=== PATIENT | male | born 1995 | race American Indian/Alaskan Native ===

== ENCOUNTER 2021-03-13 17:08 | Emergency (ER) | payer SELFPAY ==
[2021-03-13 17:38] VITALS: BP 121/62
--- NOTE | 2021-03-13 17:54 | Emergency Department Report ---
Chief Complaint: Skin/Abscess/Foreign Body Stated Complaint: COTTON SWAB IN EAR Time Seen by Provider: 03/13/21 17:40 - HPI History of Present Illness: 25-year-old male patient presents emergency department with complaints of right ear discomfort starting today. Patient states his discomfort began after he was using Q-tips to clean his ears. Patient noticed the cotton portion of the Q-tip was missing after removing the Q-tip from his ear. Denies all other complaints at this time. - ROS Review of Systems: GENERAL: Negative for fever. ENT: Positive for right ear discomfort. CARDIOVASCULAR: Negative for chest pain. PULMONARY: Negative for shortness of breath. GASTROINTESTINAL: Negative for abdominal pain. MUSCULOSKELETAL: Negative for back pain. NEUROLOGICAL: Negative for headache. INTEGUMENTARY: Negative for rash. - Exam Vital Signs: Vital Signs 03/13/21 17:32 Temperature 98 F Pulse Rate 71 Respiratory 16 Rate Blood Pressure 121/62 [Left] O2 Sat by Pulse 98 Oximetry Physical Exam: General: Awake, appropriately interactive, no acute distress. ENT: Left auditory canal with diffuse skin irritation. Right auditory canal occluded by white foreign body, consistent with reported history of Q-tip insertion. Cannot visualize tympanic membrane. Neck: Supple. Full range of motion intact. Cardiovascular: Normal peripheral perfusion. Pulmonary: No respiratory distress. Patient is speaking normally without use of accessory muscles. Skin: No apparent rashes or lesions. Neurological: No facial asymmetry. Speech is clear. Follows commands. Patient is alert and oriented. Musculoskeletal: Moves all four extremities spontaneously with normal range of motion. Psych: Cooperative. Appropriate mood and affect. MSE screening note: Focused history and physical exam performed. Due to findings the following was ordered: ED Medical Decision Making - Medical Decision Making Patient presents to the emergency department with complaints of discomfort in his right ear after using a Q-tip. Foreign body present on physical exam, consistent with cotton from Q-tip. There is no evidence of infection or active bleeding. Jessica extractor unavailable at this facility. Risks and benefits of attempted foreign body removal discussed with patient. It was explained to the patient that irrigation is not recommended due to the material's tendency to swell and attempting blind removal with sharp instruments may result in injury to the tympanic membrane. Patient was advised that the foreign object is very likely to fall out on its own, however he has been referred to an ENT specialist for close outpatient follow-up. Emphasized the importance of refraining from inserting anything into the ear without medical supervision and refraining from submerging his head underwater until the foreign body either falls out on its own or is removed by ENT specialist. Patient expressed understanding and is agreeable to plan of care. Strict return precautions provided. ED Disposition for MSE Clinical Impression: Encounter for medical screening examination Disposition: HOME / SELF CARE / HOMELESS Is pt being admited?: No Does the pt Need Aspirin: No Condition: Stable Instructions: Medical Screening Exam Additional Instructions: Take Tylenol every 4 hours and Motrin every 8 hours as needed for pain. Do not insert anything else into the ear without medical supervision. Do not submerge the ear underwater until symptoms resolve. Follow-up with Dr. Barrow, ENT specialist, this week. Call tomorrow to schedule an appointment. See referral information below. Return to the emergency department immediately for new or worsening symptoms. Specifically, return to the emergency department immediately for bleeding, drainage, worsening pain, or any other concerns. Referrals: BONNIE BARROW MD [Staff Physician] - 3-5 Days Time of Disposition: 17:56
== END 2021-03-13 19:46 | disposition home or self-care (01) ==
LOC: ED 17:08
DX: T16.1XXA Foreign body in right ear, initial encounter (principal); Z13.9 Encounter for screening, unspecified; X58.XXXA Exposure to other specified factors, initial encounter; Y93.89 Activity, other specified; Y92.89 Other specified places as the place of occurrence of the external cause; Y99.8 Other external cause status
CPT/HCPCS: 99281

== ENCOUNTER 2021-07-26 18:08 | Emergency (ER) | payer SELFPAY ==
[2021-07-26 18:22] VITALS: BP 145/92
== END 2021-07-26 19:30 | disposition left against medical advice (07) ==
LOC: ED 18:08
DX: H57.10 Ocular pain, unspecified eye (principal); Z53.21 Procedure and treatment not carried out due to patient leaving prior to being seen by health care provider